=== PATIENT | female | born 1970 | race Two or more races ===

== ENCOUNTER 2025-06-20 07:42 | Emergency (ER) | payer MEDICAID, SELFPAY ==
[2025-06-20 07:59] VITALS: BP 142/84; PULSE 74; RESP 17; TEMP 36.8; O2SAT 98; BMI 22.9
--- NOTE | 2025-06-20 08:07 | XR_ITS ---
Examination: CT brain head without contrast. 2-D sagittal coronal reconstructions Date and time of exam: June, 0824 hours INDICATIONS: Onset head pain beginning 5 days ago CTDI: vol (mGy): 46.7 DLP: (mGycm): 1072 Technique: Multiple CT axial sections of the brain have been obtained, 5 mm slice thickness. Contrast has not been administered. 2-D sagittal, coronal reconstructions have been obtained Low dose protocols were performed. One or more of the following dose reduction techniques were used; automated exposure control, adjustment of the mA and/or KV according to patient size, use of iterative reconstruction technique. Findings: No significant ventricular enlargement. Intra-axial or extra-axial hemorrhage density is not seen. No mass effect or midline shift Basal cisterns are not remarkable. Fourth ventricle is midline. Cranial vault intact. Impression: Negative for acute hemorrhage, mass effect or midline shift Advise clinical correlation and follow-up accordingly
--- NOTE | 2025-06-20 08:57 | PD.EDHA ---
ED Headache RME/HPI General Chief Complaint: Headache Stated Complaint: AUGUSTIN, HTN X 5 days, pt. states left head pain Time Seen by Provider: 06/20/25 08:05 Arrival date/time: 06/20/25 07:42 54-year-old female presents to the Emergency Department today for complaint of left-sided neck pain and headache patient reports pain is worse with movement of her neck. Patient reports no disturbances of vision no numbness no tingling patient reports that she is under a lot of stress RME / HPI RME / HPI Narrative: DR. FARAH MAIN ED EVALUATION: 52 year old female presents to the Emergency Department with complaints of a headache onset a month ago; she states a month ago she heard a pop in the left side of her head and then felt warm and since she has been having pain constantly some days worse than others, today is a worse day . She states she took Tylenol this morning with no relief. Associated symptoms include dizziness, photophobia, phonophobia, and left face and complete forehead numbness and tingling. She also states that she gets left eye pains on/off and with that pain she also gets left eye blurred vision; right eye is normal and no pain or blurred vision on the right side. Patient has seen her primary care physician concerning the headache and has an MRI scheduled for next. She was advised for the meantime Tylenol as needed for pain. Patient denies any blurred vision now or any other symptoms at this time. PMHx: Hypertension, x3 sections and a tubal ligation. Social Hx: No tobacco, alcohol, or substance use. Related Data Home Medications ?Medication ?Instructions ?Recorded ?Confirmed losartan 50 mg tablet 50 mg PO QDAY 07/23/23 07/23/23 Previous Rx's ?Medication ?Instructions ?Recorded ibuprofen 800 mg tablet 800 mg PO TID PRN pain #30 tabs 06/20/25 Allergies Allergy/AdvReac Type Severity Reaction Status Date / Time No Known Allergies Allergy Verified 06/20/25 07:48 Review of Systems Review of Systems Systems Reviewed: All systems reviewed, normal except as documented Narrative Review of Systems: GEN: No fever, no chills, no weight loss, + photophobia, phonophobia EYES: No discharge, + left eye pains on/off, + left eye blurred vision HEENT: No ear pain, no congestion, no sore throat PULM: No shortness of breath, no cough, no congestion CV: No chest pain, no dyspnea on exertion, no palpitations GI: No nausea, no vomiting, no diarrhea, no pain, no constipation : No frequency, no urgency and no dysuria MUSC/SKEL: No joint pain, no back pain SKIN: No rash PSYCH: No hallucinations, no depression HEME/LYMPH: No easy bleeding or bruising tendencies NEURO: No weakness, + headache, + dizziness, + left face and complete forehead numbness and tingling Constitutional Constitutional: Reports system reviewed and no additional complaints, except as documented, Denies fever(s) and Reports headache(s) Eyes Eyes: Reports system reviewed and no additional complaints, except as documented and Denies blurry vision ENT Ears, Nose, Mouth, and Throat: Reports system reviewed and no additional complaints, except as documented, Reports headache(s), Denies nasal congestion and Denies nasal discharge Cardiovascular Cardiovascular: Reports system reviewed and no additional complaints, except as documented, Denies chest pain and Denies dyspnea Respiratory Respiratory: Reports system reviewed and no additional complaints, except as documented, Denies chest congestion, Denies cough and Denies dyspnea Gastrointestinal Gastrointestinal: Reports system reviewed and no additional complaints, except as documented and Denies abdominal pain Integumentary/Breasts Skin/Breast: Reports system reviewed and no additional complaints, except as documented and Denies rash Neurologic Neurologic: Reports system reviewed and no additional complaints, except as documented, Reports as per HPI and Reports headache(s) Past Medical History Past Medical History CARDIAC: Positive Hypertension Surgical History SURGICAL: Positive of Back Surgery, Tubal Ligation and Section (x3) Social History SMOKING STATUS: Never smoker SUBSTANCE USE: does not use ALCOHOL: Never ED Exam Narrative Physical exam: GEN. APPEARANCE: The patient is alert awake oriented X-3 in no distress, lying down comfortably, does not look ill/toxic. Patient has good eye contact. Patient is cooperative. VITALS: All vitals were reviewed and the pulse ox is 98% on room air which is normal according to my interpretation. HEENT: Normocephalic, atraumatic. There is tenderness on the temporal artery, left, area. 2+ temporal pulses bilaterally pupils are equal and reactive. Oral mucosa is moist. Patent Nares NECK: Supple, nontender, no thyromegaly, no meningismus, no JVD, no step offs CHEST: Symmetrical, atraumatic, and with equal expansion , Nontender on palpation no deformity and no crepitus. CARDIOVASCULAR: Heart regular rhythm no murmur or gallop rub or extra beats. LUNGS: Clear to auscultation bilaterally with symmetrical chest rise. No laboring tachypnea or wheezing. No intercostal subcostal retraction. No rales and no rhonchi. ABDOMEN: Soft, flat, nontender to palpation, no guarding or rebound tenderness. There are no abnormal masses palpated. Active and normal bowel sounds. EXTREMITIES: Nontender. No edema. No cyanosis. Patient is able to move all 4 extremities well, with full ROM and good CSM. SKIN: Warm and dry, no jaundice or rashes noted. MUSCULOSKELETAL: No lumbar or midline bony tenderness. There is no CVA tenderness. No paraspinal muscle spasm or tenderness. NEURO: Patient is ANDERSON x 4, Cranial nerves II through XII grossly intact. There is no focal neurologic deficits noted. GCS is 15, PNS and CAT AND DOG BATHER appear grossly intact. PSYCHIATRIC: Patient is in normal mood and affect, cooperative, no SI or HI or hallucinations. Course Quality Measures none Orders Category Date Time Status CT head/brain wo con Stat Exams 06/20/25 08:07 Completed Vital Signs Vital signs: Vital Signs Temperature 98.3 F 06/20/25 07:59 Pulse Rate 74 06/20/25 07:59 Respiratory Rate 17 06/20/25 07:59 Blood Pressure 142/84 H 06/20/25 07:59 Pulse Oximetry (%) 98 06/20/25 07:59 Oxygen Delivery Method Room Air 06/20/25 07:59 Headache MDM Narrative MDM Narrative:: 54-year-old female presents to the Emergency Department today for complaint of left-sided neck pain and headache patient reports pain is worse with movement of her neck. Patient reports no disturbances of vision no numbness no tingling patient reports that she is under a lot of stress On exam patient well-appearing patient does not appear toxic distress Imaging obtained no acute emergent findings noted I believe that patient is having muscle spasms in her neck and a lot of stress which is causing her headaches Patient is hemodynamically stable at this time Patient has no abnormal neurological findings Patient discharged home in no distress to follow-up with primary care doctor in the next 24 to 48 hours and for any worsening symptoms to return to the ER immediately Patient data External records reviewed:: [facility] previous records Clinical information provided by:: patient Social determinants that could affect healthcare access:: none Patient has the following chronic illnesses:: None How is presenting disease/condition affected by chronic disease/condition?: no chronic disease Evaluation data The following diagnostics were reviewed and interpreted by me:: radiology exam(s) Lab and/or radiology exams considered but not ordered:: Radiology obtained Interpretation Summary: Reviewed by me Medications / Prescriptions Medications or Prescriptions considered but not ordered:: Given Medication administrations:: Given Consultations Consultation(s) initiated? (list below): No Diagnosis Differential diagnosis headache: migraine, tension headache and subarachnoid hemorrhage Most likely diagnosis given after review of the tests above:: Headache Admission Indicated Admission indicated?: not indicated Admission Request Was there a request for admission?: No Disposition Plan Disposition Plan: Discharge Discharge Attestation Discharge Attestation: The patient and all family members were given an opportunity to ask questions and understood the discharge instructions. Discharge instructions specifically effects, indications for sooner follow up or return to the emergency department, and the expected course of current diagnosis. Patient condition: Stable Discharge Plan Plan Patient Disposition: HOME (Self Care) Discharge Disposition comment: Stable Prescriptions/Referrals Prescriptions/Med Rec: New ibuprofen 800 mg tablet 800 mg PO TID PRN (Reason: pain) Qty: 30 0RF No Action losartan 50 mg Tablet 50 mg PO QDAY Referrals: Hermilo Márquez MD [Primary Care Provider, Family Practice] - 06/23/25 Problem List Clinical Impression: Headache Patient/Caregiver Discharge Instructions Education Materials: Self-Care for Headaches Additional Instructions: Please follow up with your primary care doctor in the next 24-48hrs for any worsening symptoms return here immediately Print Language: Kinyarwanda Stand Alone Forms: Reyna Award Info., Work/School Release, Patient Portal Info Letter TAMARA/KISHA Supervising Physician TAMARA/KISHA Supervising Physician: Dr. marks
--- NOTE | 2025-06-25 07:47 | EDNOTE_ITS ---
ED Headache RME/HPI General Chief Complaint: Headache Stated Complaint: AUGUSTIN, HTN X 5 days, pt. states left head pain Time Seen by Provider: 06/20/25 08:05 Arrival date/time: 06/20/25 07:42 54-year-old female presents to the Emergency Department today for complaint of left-sided neck pain and headache patient reports pain is worse with movement of her neck. Patient reports no disturbances of vision no numbness no tingling patient reports that she is under a lot of stress Limitations: no limitations RME / HPI RME / HPI Narrative: DR. GAGAN PATEL ED EVALUATION: 52 year old female presents to the Emergency Department with complaints of a headache onset a month ago; she states a month ago she heard a pop in the left side of her head and then felt warm and since she has been having pain constantl y some days worse than others, today is a worse day . She states she took Tylenol this morning with no relief. Associated symptoms include dizziness, photophobia, phonophobia, and left face and complete forehead numbness and tingling. She also states that she gets left eye pains on/off and with that pain she also gets left eye blurred vision; right eye is normal and no pain or blurred vision on the right side. Patient has seen her primary care physician concerning the headache and has an MRI scheduled for next. She was advised for the meantime Tylenol as needed for pain. Patient denies any blurred vision now or any other symptoms at this time. PMHx: Hypertension, x3 sections and a tubal ligation. Social Hx: No tobacco, alcohol, or substance use. Related Data Home Medications ?Medication ?Instructions ?Recorded ?Confirmed losartan 50 mg tablet 50 mg PO QDAY 07/23/2307/23 Previous Rx's ?Medication ?Instructions ?Recorded ibuprofen 800 mg tablet 800 mg PO TID PRN pain #30 t abs 06/20/25 Allergies Allergy/AdvReac Type Severity Reaction Status Date / Time No Known Allergies Allergy Verified 06/20/25 07:48 Review of Systems Review of Systems Systems Reviewed: All systems reviewed, normal except as documented Constitutional Constitutional: Reports system reviewed and no additional complaints, except as documented, Denies fever(s) and Reports headache(s) Eyes Eyes: Reports system reviewed and no additional complaints, except as documented and Denies blurry vision ENT Ears, Nose, Mouth, and Throat: Reports system reviewed and no additional complaints, except as documented, Reports headache(s), Denies nasal congestion and Denies nasal discharge Cardiovascular Cardiovascular: Reports system reviewed and no additional complaints, except as documented, Denies chest pain and Denies dyspnea Respiratory Respiratory: Reports system reviewed and no additional complaints, except as documented, Denies chest congestion, Denies cough and Denies dyspnea Gastrointestinal Gastrointestinal: Reports system reviewed and no additional complaints, except as documented and Denies abdominal pain Integumentary/Breasts Skin/Breast: Reports system reviewed and no additional complaints, except as documented and Denies rash Neurologic Neurologic: Reports system reviewed and no additional complaints, except as documented, Reports as per HPI and Reports headache(s) Past Medical History Past Medical History NEUROLOGIC: Negative Neurological Disorders CARDIAC: Negative Cardiac Disorders ED Exam General Limitations: Present no limitations General appearance: Present alert and in no apparent distress Head Head exam: Present atraumatic Eye Eye exam: Present normal appearance, PERRL and EOMI ENT ENT exam: Present normal exam, normal oropharynx and mucous membranes moist Neck Neck exam: Present normal inspection, full ROM, trachea midline and tenderness; Absent meningismus, lymphadenopathy or thyromegaly Chest Chest inspection: Present normal inspection and symmetric chest wall rise Respiratory Respiratory exam: Present normal lung sounds bilaterally Cardiovascular Cardiovascular exam: Present regular rate, normal rhythm and normal heart sounds Abdominal Exam Abdominal exam: Present soft and normal bowel sounds Extremities Exam Extremities exam: Present normal inspection and full ROM Back Exam Back exam: Present normal inspection and full ROM Neurological Exam Neurological exam: Present alert, oriented X3, CN II-XII intact, normal gait and reflexes normal; Absent motor sensory deficit Psychiatric Psychiatric exam: Present normal affect and normal mood Skin Skin exam: Present warm, dry, intact and normal color Course Quality Measures none Orders Category Date Time Status CT head/brain wo con Stat Exams 06/20/25 08:07 Completed Vital Signs Vital signs: Vital Signs Temperature 98.3 F 06/20/25 07:59 Pulse Rate 74 06/20/25 07:59 Respiratory Rate 17 06/20/25 07:59 Blood Pressure 142/84 H 06/20/25 07:59 Pulse Oximetry (%) 98 06/20/25 07:59 Oxygen Delivery Method Room Air 06/20/25 07:59 O2 saturation 98% room air within normal limits Headache MDM Narrative MDM Narrative:: 54-year-old female presents to the Emergency Department today for complaint of left-sided neck pain and headache patient reports pain is worse with movement of her neck. Patient reports no disturbances of vision no numbness no tingling patient reports that she is under a lot of stress On exam patient well-appearing patient does not appear toxic distress Imaging obtained no acute emergent findings noted I believe that patient is having muscle spasms in her neck and a lot of stress which is causing her headaches Patient is hemodynamically stable at this time Patient has no abnormal neurological findings Patient discharged home in no distress to follow-up with primary care doctor in the next 24 to 48 hours and for any worsening symptoms to return to the ER immediately Patient data External records reviewed:: [facility] previous records Clinical information provided by:: none Social determinants that could affect healthcare access:: none Patient has the following chronic illnesses:: History How is presenting disease/condition affected by chronic disease/condition?: caused by Evaluation data The following diagnostics were reviewed and interpreted by me:: radiology exam(s) Lab and/or radiology exams considered but not ordered:: Allergy Interpretation Summary: Reviewed by me Medications / Prescriptions Medications or Prescriptions considered but not ordered:: Given Medication administrations:: Given Consultations Consultation(s) initiated? (list below): No Diagnosis Differential diagnosis headache: migraine, tension headache and subarachnoid hemorrhage Most likely diagnosis given after review of the tests above:: Headache Admission Indicated Admission indicated?: not indicated Admission Request Was there a request for admission?: No Disposition Plan Disposition Plan: Discharge Discharge Attestation Discharge Attestation: The patient and all family members were given an opportunity to ask questions and understood the discharge instructions. Discharge instructions specifically effects, indications for sooner follow up or return to the emergency department, and the expected course of current diagnosis. Patient condition: Stable Discharge Plan Plan Patient Disposition: HOME (Self Care) Discharge Disposition comment: Stable Prescriptions/Referrals Prescriptions/Med Rec: New ibuprofen 800 mg tablet 800 mg PO TID PRN (Reason: pain) Qty: 30 0RF No Action losartan 50 mg Tablet 50 mg PO QDAY Referrals: Hermilo Márquez MD [Primary Care Provider, Family Practice] - 06/23/25 Problem List Clinical Impression: Headache Patient/Caregiver Discharge Instructions Education Materials: Self-Care for Headaches Additional Instructions: Please follow up with your primary care doctor in the next 24-48hrs for any worsening symptoms return here immediately Print Language: Polish Stand Alone Forms: Reyna Award Info., Work/School Release, Patient Portal Info Letter PA/SUPERVISOR TYPE BAR AND SEGMENT Supervising Physician PA/SUPERVISOR TYPE BAR AND SEGMENT Supervising Physician: Dr. marks
== END 2025-06-20 10:00 | disposition home or self-care (01) ==
PROVIDERS: Emergency Provider Nurse Practitioner Primary Care; PCP Family Medicine
DX: R51.9 Headache, unspecified (principal); I10 Essential (primary) hypertension
CPT/HCPCS: 70450; 99283